=== PATIENT | female | born 1990 | race American Indian/Alaskan Native ===

== ENCOUNTER 2017-06-10 21:30 | Emergency (ER) | payer OTHER ==
[2017-06-10 22:14] LABS: Basophils % (Auto) 0.6 % (0.0-1.8); Eosinophils % (Auto) 0.3 % (0.0-4.3); Hematocrit 40.7 % (30.3-42.9); Hemoglobin 13.1 gm/dl (10.1-14.3); Mean Corpuscular HGB Conc 32 % (30-34); Mean Corpuscular Hemoglobin 28 pg (28-32); Mean Corpuscular Volume 87 fl (79-97); Platelet Count 206 K/mm3 (140-440); White Blood Count 5.1 K/mm3 (4.5-11.0)
[2017-06-10 22:24] LABS: Anion Gap 17 mmol/L; BUN/Creatinine Ratio 13.33; Blood Urea Nitrogen 12 mg/dL (7-17); Calcium 8.8 mg/dL (8.4-10.2); Carbon Dioxide 26 mmol/L (22-30); Chloride 103.2 mmol/L (98-107); Glucose 90 mg/dL (65-100); Potassium 4.8 mmol/L (3.6-5.0); Sodium 141 mmol/L (137-145)
--- NOTE | 2017-06-10 23:59 | Cat Scan Report ---
FINAL REPORT PROCEDURE: CT HEAD/BRAIN WO CON TECHNIQUE: Computerized tomography of the head was performed without contrast material. HISTORY: SYNCOPE/ HEAD PAIN COMPARISON: No prior studies are available for comparison. FINDINGS: Brain: Brain density appears normal. No evidence of intracranial hemorrhage. No parenchymal hemorrhage, mass lesions or mass effect are seen. No abnormal extraxial fluid collects or masses are seen. There is nonspecific mineralization of the basal ganglia bilaterally. Ventricles: Ventricles are normal size and are midline. Bone Windows: No evidence of skull fracture. Paranasal sinuses: There is a 6.7 millimeter nodular density posteriorly in the right maxillary sinus suggesting a polyp or mucous retention cyst. Visualized portions of the paranasal sinuses otherwise appear clear. The entire paranasal sinuses are not included on this exam. Mastoid air cells: Clear IMPRESSION: Mild paranasal sinus disease as described. No acute intracranial abnormalities are seen
[2017-06-11 00:33] LABS: Bacteria,Urine 1+ /HPF (Negative); Bilirubin,Urine NEG (Negative); Blood,Urine NEG (Negative); Ketones,Urine NEG (Negative); Leukocyte Esterase,Urine NEG (Negative); Mucus,Urine 2+ /HPF; Nitrite,Urine NEG (Negative); Protein,Urine <15 mg/dL mg/dL (Negative)
[2017-06-11 01:22] LABS: Urine Drugs of Abuse Note Disclamer
[2017-06-11 01:29] VITALS: BP 106/77
--- NOTE | 2017-06-11 01:59 | Emergency Department Report ---
ED Syncope HPI - General Chief Complaint: Syncope Stated Complaint: SYNCOPE/HIT HEAD/DIZZINESS Time Seen by Provider: 06/11/17 01:46 Source: patient, RN notes reviewed Exam Limitations: no limitations - History of Present Illness Initial Comments: This is a 26-year-old female. She is previously unknown to me. She denies chronic medical conditions. She does not take any prescription medications. She does not take oral control tablets. The patient presented to the ER after an episode of syncope. Patient reports that she was at an outpatient [facility] yesterday, thinks that they were using new chemicals or orders, she began to feel dizzy and lightheaded, and stood up. Shortly thereafter, she reports losing consciousness and she thinks she hit her head. Prior to the event, she did not have a sudden thunderclap headache, she did not have chest pain and shortness of breath. After hitting her head, she thinks that she threw up. There is no leg pain or leg swelling. No recent trips greater than 4 hours. No recent hospital admissions. No cocaine use. Patient denies chest pain or shortness of breath. There is no midline neck pain. There is no weakness or numbness. There is no abdominal pain. This has never happened to her before. Timing/Prior Episodes: single episode today Precipitating Factors: Positive: blurred vision, lightheadedness Context: standing Loss of Consciousness: brief (seconds) Current Symptoms: back to normal - Related Data Allergies/Adverse Reactions: Allergies No Known Allergies Allergy (Verified 06/10/17 21:40) Home Medications: Ambulatory Orders No Known Home Medications [No Reported Home Medications] 06/11/17 ED Review of Systems ROS: Stated complaint: SYNCOPE/HIT HEAD/DIZZINESS Other details as noted in HPI Constitutional: denies: fever Eyes: denies: vision change ENT: denies: epistaxis Respiratory: denies: cough Cardiovascular: syncope Gastrointestinal: vomiting. denies: abdominal pain Genitourinary: denies: urgency, dysuria Musculoskeletal: denies: arthralgia, myalgia Skin: denies: lesions Neurological: denies: weakness Psychiatric: anxiety ED Past Medical Hx - Past Medical History Previous Medical History?: Yes Additional medical history: LEFT OVARIAN CYST - Surgical History Past Surgical History?: No - Social History Smoking Status: Current Every Day Smoker Substance Use Type: Alcohol - Medications Home Medications: Home Medications Medication Instructions Recorded Confirmed Last Taken Type No Known Home Medications [No 06/11/17 06/11/17 Unknown History Reported Home Medications] ED Physical Exam - General Limitations: No Limitations General appearance: alert, in no apparent distress - Head Head exam: Present: atraumatic, normocephalic - Eye Eye exam: Present: normal appearance, PERRL, EOMI, other (visual acuity intact to finger counting, color perception, reading at a close distance). Absent: nystagmus - ENT ENT exam: Present: normal exam, normal orophraynx, mucous membranes moist, normal external ear exam - Neck Neck exam: Present: normal inspection, full ROM. Absent: tenderness, meningismus - Respiratory Respiratory exam: Present: normal lung sounds bilaterally. Absent: respiratory distress, wheezes, rales, rhonchi, stridor, chest wall tenderness, accessory muscle use, decreased breath sounds, prolonged expiratory - Cardiovascular Cardiovascular Exam: Present: regular rate, normal rhythm, normal heart sounds. Absent: bradycardia, tachycardia, irregular rhythm, systolic murmur, diastolic murmur, rubs, gallop - GI/Abdominal GI/Abdominal exam: Present: soft, normal bowel sounds. Absent: distended, tenderness, guarding, rebound, rigid, pulsatile mass - Extremities Exam Extremities exam: Present: normal inspection, full ROM, normal capillary refill. Absent: calf tenderness - Back Exam Back exam: Present: normal inspection, full ROM. Absent: tenderness, CVA tenderness (R), CVA tenderness (L), muscle spasm, paraspinal tenderness, vertebral tenderness - Neurological Exam Neurological exam: Present: alert, oriented X3, normal gait (normal gait. Normal tandem gait. Negative Romberg examination. Normal [id number]. Negative pronator drift. No visual field cuts.), other (Extraocular movements intact. Tongue midline. No facial droop. Facial sensation intact to light touch in the V1, V2, V3 distribution bilaterally. 5 and 5 strength in 4 extremities.. Sensation is intact to light touch in 4 extremities.). Absent: motor sensory deficit - Psychiatric Psychiatric exam: Present: normal affect, normal mood - Skin Skin exam: Present: warm, dry, intact, normal color. Absent: rash ED Course Vital Signs 06/10/17 06/11/17 06/11/17 21:40 00:50 01:00 Temperature 98.1 F Pulse Rate 76 74 Respiratory 18 12 10 L Rate Blood Pressure 101/66 106/77 O2 Sat by Pulse 100 99 99 Oximetry ED Medical Decision Making - Lab Data Result diagrams: 06/10/17 21:54 06/10/17 21:54 Vital Signs 06/10/17 06/11/17 06/11/17 21:40 00:50 01:00 Temperature 98.1 F Pulse Rate 76 74 Respiratory 18 12 10 L Rate Blood Pressure 101/66 106/77 O2 Sat by Pulse 100 99 99 Oximetry Lab Results 06/10/17 06/10/17 06/10/17 Range/Units 21:54 21:54 21:54 WBC 5.1 (4.5-11.0) K/mm3 RBC 4.70 (3.65-5.03) M/mm3 Hgb 13.1 (10.1-14.3) gm/dl Hct 40.7 (30.3-42.9) % MCV 87 (79-97) fl MCH 28 (28-32) pg MCHC 32 (30-34) % RDW 15.0 (13.2-15.2) % Plt Count 206 (140-440) K/mm3 Lymph % (Auto) 21.3 (13.4-35.0) % [place] % (Auto) 6.9 (0.0-7.3) % Eos % (Auto) 0.3 (0.0-4.3) % Baso % (Auto) 0.6 (0.0-1.8) % Lymph # 1.1 L (1.2-5.4) K/mm3 [place] # 0.3 (0.0-0.8) K/mm3 Eos # 0.0 (0.0-0.4) K/mm3 Baso # 0.0 (0.0-0.1) K/mm3 Seg Neutrophils % 70.9 H (40.0-70.0) % Seg Neutrophils # 3.6 (1.8-7.7) K/mm3 Sodium 141 (137-145) mmol/L Potassium 4.8 (3.6-5.0) mmol/L Chloride 103.2 (98-107) mmol/L Carbon Dioxide 26 (22-30) mmol/L Anion Gap 17 mmol/L BUN 12 (7-17) mg/dL Creatinine 0.9 (0.7-1.2) mg/dL Estimated GFR > 60 ml/min BUN/Creatinine Ratio 13.33 % Glucose 90 (65-100) mg/dL Calcium 8.8 (8.4-10.2) mg/dL HCG, Qual Negative (Negative) Urine Color (Yellow) Urine Turbidity (Clear) Urine pH (5.0-7.0) Ur Specific [place] (1.003-1.030) Urine Protein (Negative) mg/dL Urine Glucose (UA) (Negative) mg/dL Urine Ketones (Negative) mg/dL Urine Blood (Negative) Urine Nitrite (Negative) Urine Bilirubin (Negative) Urine Urobilinogen (<2.0) mg/dL Ur Leukocyte Esterase (Negative) Urine WBC (Auto) (0.0-6.0) /HPF Urine RBC (Auto) (0.0-6.0) /HPF U Epithel Cells (Auto) (0-13.0) /HPF Urine Bacteria (Auto) (Negative) /HPF Urine Mucus /HPF Urine Opiates Screen Urine Methadone Screen Ur Barbiturates Screen Ur Phencyclidine Scrn Ur Amphetamines Screen U Benzodiazepines Scrn Urine Cocaine Screen 06/10/17 06/11/17 Range/Units Unknown Unknown WBC (4.5-11.0) K/mm3 RBC (3.65-5.03) M/mm3 Hgb (10.1-14.3) gm/dl Hct (30.3-42.9) % MCV (79-97) fl MCH (28-32) pg MCHC (30-34) % RDW (13.2-15.2) % Plt Count (140-440) K/mm3 Lymph % (Auto) (13.4-35.0) % [place] % (Auto) (0.0-7.3) % Eos % (Auto) (0.0-4.3) % Baso % (Auto) (0.0-1.8) % Lymph # (1.2-5.4) K/mm3 [place] # (0.0-0.8) K/mm3 Eos # (0.0-0.4) K/mm3 Baso # (0.0-0.1) K/mm3 Seg Neutrophils % (40.0-70.0) % Seg Neutrophils # (1.8-7.7) K/mm3 Sodium (137-145) mmol/L Potassium (3.6-5.0) mmol/L Chloride (98-107) mmol/L Carbon Dioxide (22-30) mmol/L Anion Gap mmol/L BUN (7-17) mg/dL Creatinine (0.7-1.2) mg/dL Estimated GFR ml/min BUN/Creatinine Ratio % Glucose (65-100) mg/dL Calcium (8.4-10.2) mg/dL HCG, Qual (Negative) Urine Color Yellow (Yellow) Urine Turbidity Clear (Clear) Urine pH 6.0 (5.0-7.0) Ur Specific [place] 1.026 (1.003-1.030) Urine Protein <15 mg/dl (Negative) mg/dL Urine Glucose (UA) Neg (Negative) mg/dL Urine Ketones Neg (Negative) mg/dL Urine Blood Neg (Negative) Urine Nitrite Neg (Negative) Urine Bilirubin Neg (Negative) Urine Urobilinogen 2.0 (<2.0) mg/dL Ur Leukocyte Esterase Neg (Negative) Urine WBC (Auto) 1.0 (0.0-6.0) /HPF Urine RBC (Auto) 1.0 (0.0-6.0) /HPF U Epithel Cells (Auto) 16.0 H (0-13.0) /HPF Urine Bacteria (Auto) 1+ (Negative) /HPF Urine Mucus 2+ /HPF Urine Opiates Screen Presumptive negative Urine Methadone Screen Presumptive negative Ur Barbiturates Screen Presumptive negative Ur Phencyclidine Scrn Presumptive negative Ur Amphetamines Screen Presumptive negative U Benzodiazepines Scrn Presumptive negative Urine Cocaine Screen Presumptive negative - EKG Data -: EKG Interpreted by [facility] EKG shows normal: sinus rhythm, axis, intervals, QRS complexes, ST-T waves - EKG Data When compared to previous EKG there are: previous EKG unavailable 06/11/17 01:56 normal sinus, 73 bpm, normal intervals, normal axis, not morphologically consistent with STEMI - Radiology Data Radiology results: report reviewed, image reviewed Noncontrast CT scan of the brain is negative - Medical Decision Making Differential diagnosis: Vagal event, orthostasis, concussion, chemically induced syncope Assessment and plan: 26-year-old female with single event of syncope that happened yesterday while she was at a nail salon where they were using new chemicals that she was exposed to. She is afebrile, with Reassuring vital signs, has an NIH score of 0, GCS of 15, walks with a steady gait, no cerebellar signs, history and physical not consistent with subarachnoid hemorrhage, no pulmonary or DVT risk factors, low risk by well's criteria, perc negative. May have a component of mild concussion. Noncontrast CT scan of the brain is negative. Patient observed in the ER for a few hours without any obvious arrhythmias or hemodynamic instability. Borderline positive orthostatic vital signs. Patient is suitable to follow-up in outpatient primary care doctor and or public health teacher. While her event is most likely benign, the patient is instructed to not drive or operate motor vehicles until cleared by the primary care cardiology. Critical care attestation.: If time is entered above; I have spent that time in minutes in the direct care of this critically ill patient, excluding procedure time. ED Disposition Clinical Impression: Syncope Disposition: DC-01 TO HOME OR SELFCARE Is pt being admited?: No Does the pt Need Aspirin: No Condition: Stable Instructions: Syncope (ED) Additional Instructions: Follow up with either of the listed cardiology groups within the next 3-5 [address] a car or operate motor vehicles until cleared by either primary care or cardiology. Return to the ER right away with fevers, chills, chest pain , shortness of breath, intractable nausea or vomiting, confusion, recurrent loss of consciousness, inability to tolerate liquid feeds. Referrals: [facility]IMARY CAREM[facility] [Primary Care Provider] - 3-5 Days [facility] - 3-5 Days [facility] [Provider Group] - 3-5 Days Forms: Work/School Release Form(ED)
[2017-06-11 02:34] LABS: INR 0.99 (0.87-1.13)
== END 2017-06-11 02:28 | disposition home or self-care (01) ==
LOC: ED 21:30
DX: R55 Syncope and collapse (principal); F17.200 Nicotine dependence, unspecified, uncomplicated; N83.202 Unspecified ovarian cyst, left side
CPT/HCPCS: 36415; 70450; 80048; 80307; 81001; 84703; 85025; 85610; 93005; 93010